=== PATIENT | female | born 2000 | race Hispanic/Latino ===

== ENCOUNTER 2019-06-30 12:55 | Emergency (ER) | payer SELFPAY ==
[2019-06-30] MEDS ORDERED: SILVER SULFADIAZINE CREAM 50 GM TP ONE (13:13)
[2019-06-30] MEDS ORDERED: ACETAMINOPHEN EXTRA STRENGTH 500 MG TABLET ONE (13:14)
== END 2019-06-30 14:40 | disposition home or self-care (01) ==
LOC: EDH 12:55
DX: T23.202A Burn of second degree of left hand, unspecified site, initial encounter (principal); T31.0 Burns involving less than 10% of body surface; Z90.49 Acquired absence of other specified parts of digestive tract; X11.8XXA Contact with other hot tap-water, initial encounter; Y93.G3 Activity, cooking and baking; Y92.098 Other place in other non-institutional residence as the place of occurrence of the external cause; Y99.8 Other external cause status
CPT/HCPCS: 16020

== ENCOUNTER 2024-02-21 17:16 | Emergency (ER) | payer OTHER ==
[~2024-02-21] VITALS: Ht 157.5 cm; Wt 113.4 kg
[2024-02-21] MEDS ORDERED: IBUP-2070 PO (19:31)
[2024-02-21] MEDS: KETOROLAC 60 MG VIAL (30MG/ML) IM ONE (19:31)
[2024-02-21] MEDS ORDERED: METH100054 PO (19:31)
[2024-02-21 19:53] VITALS: BP 124/74; PULSE 88; RESP 18; O2SAT 98
== END 2024-02-21 19:59 | disposition home or self-care (01) ==
LOC: EDH 17:16
DX: M25.512 Pain in left shoulder (principal); Z90.49 Acquired absence of other specified parts of digestive tract; V89.2XXA Person injured in unspecified motor-vehicle accident, traffic, initial encounter; Y93.I9 Activity, other involving external motion; Y92.89 Other specified places as the place of occurrence of the external cause; Y99.8 Other external cause status
CPT/HCPCS: 99284; 81025; 73030; 96372; J1885